=== PATIENT | female | born 1970 | race Two or more races ===

== ENCOUNTER 2023-11-28 23:24 | Emergency (ER) | payer MEDICAID ==
[~2023-11-28] VITALS: Ht 152.4 cm; Wt 64.7 kg
[2023-11-29 04:53] VITALS: BP 111/74; PULSE 80; RESP 18; TEMP 97.8; O2SAT 100
== END 2023-11-29 04:55 | disposition home or self-care (01) ==
LOC: ER 23:24
DX: M79.662 Pain in left lower leg (principal); M79.661 Pain in right lower leg; I82.403 Acute embolism and thrombosis of unspecified deep veins of lower extremity, bilateral
CPT/HCPCS: 93970

== ENCOUNTER 2023-12-06 10:11 | Emergency (ER) | payer MEDICAID ==
[~2023-12-06] VITALS: Ht 152.4 cm; Wt 63.6 kg
[2023-12-06 10:26] VITALS: TEMP 98
[2023-12-06 10:38] LABS: Basophils # (auto) 0 10 ^3/uL (0-0.2); Basophils % (auto) 0.5 % (0.0-2.0); Eosinophils # (auto) 0.2 10 ^3/uL (0-0.8); Hematocrit 40.7 % (36.0-46.0); Hemoglobin 13.9 g/dL (12.2-16.2); Lymphocytes # (auto) 2.2 10 ^3/uL (0.4-5.4); Lymphocytes % (auto) 37.7 % (10.0-50.0); Mean Corpuscular Hemoglobin 29.5 pg (28.0-32.0); Mean Corpuscular Hgb Conc. 34.1 g/dL (32.0-36.0); Mean Corpuscular Volume 86.5 fL (80.0-100.0); Monocytes # (auto) 0.4 10 ^3/uL (0-1.3); Monocytes % (auto) 7.2 % (0.0-12.0); Neutrophils % (auto) 51.6 % (37.0-80.0); Nucleated Red Blood Cells % 0.2 %; Red Cell Distribution Width 13.1 % (11.8-14.3); White Blood Cell 5.8 10^3/uL (4.4-10.8)
[2023-12-06] MEDS: ONDANSETRON HCL 4 MG/2 ML VIAL IV ONE (10:47)
[2023-12-06] MEDS: MORPHINE SULFATE INJ 2 MG/ml SYRG IV ONE (10:50)
[2023-12-06 10:58] LABS: Alanine Aminotransferase 27 U/L (7-40); Albumin 4.8 g/dL (3.2-4.8); Alkaline Phosphatase 151 U/L (46-116); Anion Gap 7 (5-15); Aspartate Aminotransferase 16 U/L (13-40); BUN/Creatinine Ratio 14.9 (10.0-20.0); Bilirubin, Total 0.5 mg/dL (0.2-1.0); Blood Urea Nitrogen 10 mg/dL (9-23); Calcium 10.1 mg/dL (8.7-10.4); Carbon Dioxide 27 mmol/L (20-30); Chloride 105 mmol/L (98-107); Glucose 177 mg/dL (74-106); Potassium 3.9 mmol/L (3.5-5.1); Sodium 139 mmol/L (136-145); Total Protein 7.7 g/dL (5.7-8.2)
[2023-12-06] MEDS: ASPirin 81 mg TAB PO ONE (12:08)
[2023-12-06] MEDS: SODIUM CHLORIDE 0.9% 1,000 ML IV ONE (12:09)
[2023-12-06 12:13] LABS: Urine Bacteria None Seen /hpf (None Seen)
[2023-12-06 12:37] LABS: Urine Blood Negative /uL (Negative); Urine Clarity Clear (Clear); Urine Color Light-Yellow (Yellow); Urine Mucus FEW (None Seen); Urine Protein, UAD TRACE (Negative); Urine Specific Gravity 1.024 (1.001-1.035); Urine Urobilinogen Normal (Negative); Urine WBC 1 /hpf (0 - 5)
[2023-12-06 13:18] VITALS: PULSE 86; RESP 18; O2SAT 99
[2023-12-06 15:15] VITALS: BP 122/61; PULSE 88; RESP 16; O2SAT 99
[2023-12-06] MEDS ORDERED: CYCL-839 PO (15:20)
[2023-12-06] MEDS ORDERED: DICL50TA2 PO (15:20)
== END 2023-12-06 15:43 | disposition home or self-care (01) ==
LOC: ER 10:11
DX: R07.89 Other chest pain (principal); E11.65 Type 2 diabetes mellitus with hyperglycemia; E03.9 Hypothyroidism, unspecified; Z79.899 Other long term (current) drug therapy; Z90.49 Acquired absence of other specified parts of digestive tract
CPT/HCPCS: 36415; 71045; 80053; 81001; 82962; 83735; 84443; 84484; 85025; 93005; 96361; 96374; 96375; 99285; J2270; J2405

== ENCOUNTER 2024-03-07 09:13 | Inpatient (IN) | payer MEDICAID ==
[~2024-03-07] VITALS: Ht 152.4 cm; Wt 65.0 kg
[~2024-03-07 09:13] MED LIST: CYCL-839 PO; DICL50TA2 PO
--- NOTE | 2024-03-07 09:31 | ED.PDOC ---
HPI Comments 53F who is ivorian speaking, presents to the ER w/ prior Hx of DM and HTN which may be associated to the c/c of CP. Pt reports on her mother passing away 8 days ago and has been stressed from that, and started to have CP last night which radiated to the left arm to the upper back. Pt notes that the CP feels like tightness and is constant. Pain type of a 9. PMHx of thyroid. SHx of cholecystectomy. Denies chills, fever, N/V/D, SOB or other associated Symptom's, Modifiers, or recent injuries or sick contact at this time. Chief Complaint: Chest Pain Time Seen by MD: 09:20 Reviewed Notes: Nurses Notes, Medications, Allergies Allergies: Coded Allergies: NO KNOWN ALLERGIES (Unverified , 11/17/22) Home Meds Active Scripts Cyclobenzaprine Hcl (Cyclobenzaprine Hcl) 10 Mg Tab, 10 MG PO TID for 10 Days, #30 TAB Prov:SHANNON DYKES MD 12/06/23 Diclofenac Potassium (Diclofenac Potassium) 50 Mg Tab, 50 MG PO TID for 10 Days, #30 TAB Prov:SHANNON DYKES MD 12/06/23 Information Source: Patient Mode of Arrival: Ambulatory Severity: Moderate Timing: Hours Duration: Since onset, Hours Prehospital treatment: None Location: Chest (L) Radiation: Back (upper), Arm (L) Quality: Tightness Onset: At Rest Cardiac Risk Factors: HTN, Diabetes History of: None Past Medical History PAST MEDICAL HISTORY: DM, HTN, Thyroid Surgical History: Cholecystectomy 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 Family History Family History: Reviewed,noncontributory to illness, Unknown Social History Smoker: Non-Smoker Alcohol: Denies ETOH Use Drugs: Denies Drug Use Lives In: Home Constitutional: denies: chills, diaphoresis, fatigue, fever, malaise, sweats, weakness, others EENTM: denies: blurred vision, double vision, ear bleeding, ear discharge, ear drainage, ear pain, ear ringing, eye pain, eye redness, hearing loss, mouth pain, mouth swelling, nasal discharge, nose bleeding, nose congestion, nose pain, photophobia, tearing, throat pain, throat swelling, voice changes, others Respiratory: denies: cough, hemoptysis, orthopnea, SOB at rest, shortness of breath, SOB with excertion, stridor, wheezing, others Cardiovascular: reports: chest pain, left arm pain; denies: dizzy spells, diaphoresis, Dyspnea on exertion, edema, irregular heart beat, lightheadedness, palpitations, PND, syncope, others Gastrointestinal: denies: abdomen distended, abdominal pain, blood streaked bowels, constipated, diarrhea, dysphagia, difficulty swallowing, hematemesis, melena, nausea, poor appetite, poor fluid intake, rectal bleeding, rectal pain, vomiting, others Genitourinary: denies: abnormal vagina bleeding, burning, dyspareunia, dysuria, flank pain, frequency, hematuria, incontinence, pain, , vagina discharge, urgency, others Neurological: denies: dizziness, fainting, headache, left sided numbness, left sided weakness, numbness, paresthesia, pre-existing deficit, right sided numb ness, right sided weakness, seizure, speech problems, tingling, tremors, weakness, others Musculoskeletal: denies: back pain, gout, joint pain, joint swelling, muscle pain, muscle stiffness, neck pain, others Integumetry: denies: bruises, change in color, change in hair/nails, dryness, laceration, lesions, lumps, rash, wounds, others Allergic/Immunocompromised: denies: Difficulty Healing, Frequent Infections, Hives, Itching, others Hematologic/Lymphatic: denies: anemia, blood clots, easy bleeding, easy bruising, swollen glands, others Endocrine: denies: excessive hunger, excessive sweating, excessive thirst, excessive urination, flushing, intolerance to cold, intolerance to heat, unexplained weight gain, unexplained weight loss, others Psychiatric: denies: anxiety, bipolar disorder, depression, hopeless, panic disorder, schizophrenia, sleepless, suicidal, others All Other Systems: Reviewed and Negative Physical Exam General Appearance: Moderate Distress, Normal HEENT: Normal ENT Inspection, Pharynx Normal, TMs Normal Neck: Full Range of Motion, Non-Tender, Normal, Normal Inspection Respiratory: Chest Non-Tender, Lungs Clear, No Accessory Muscle Use, No Respiratory Distress, Normal Breath Sounds Cardiovascular: No Edema, No JVD, No Murmur, No Gallop, Normal Peripheral Pulses, Regular Rate/Rhythm Breast Exam: Deferred Gastrointestinal: No Organomegaly, Non Tender, No Pulsatile Mass, Normal Bowel Sounds, Soft Genitalia: Deferred Pelvic: Deferred Rectal: Deferred Extremities: No calf tenderness, Normal capillary refill, Normal inspection, Normal range of motion, Non-tender, No pedal edema Musculoskeletal : Apperance: Normal Neurologic: Alert, movie editor II-XII nml as Tested, No Motor Deficits, Normal Affect, Normal Mood, No Sensory Deficits Cerebellar Function: NOT DONE Reflexes: NOT DONE Skin: Dry, Normal Color, Warm Peripheral Pulses: 3+ Radial (R), 3+ Radial (L) Lymphatic: No Adenopathy Was a procedure done? Was a procedure done?: No CP Differential Dx Differential Diagnosis: A-fib, A-Flutter, Angina, Anxiety / Panic Attack, Atrial Dysrhythmia, Electrolyte Disorder X-Ray, Labs, Meds, VS Vital Signs Date Time Temp Pulse Resp B/P (MAP) Pulse Ox O2 Delivery O2 Flow Rate FiO2 03/07/24 15:36 109 16 116/62 (80) 98 03/07/24 15:35 109 16 116/62 03/07/24 14:36 106 16 125/71 03/07/24 14:33 106 16 125/71 (89) 98 03/07/24 11:27 98 16 107/77 (87) 99 03/07/24 10:25 90 03/07/24 10:21 98 16 98 Room Air* 0 21 03/07/24 09:19 104 03/07/24 09:13 98.0 97 17 132/76 (94) 100 Lab Test 03/07/24 15:51 03/07/24 10:33 03/07/24 09:42 03/07/24 09:37 Range/Units POC Glucose 235 H 70-106 mg/dl Troponin I High Sensitivity < 3 L < 3 L </=34 ng/L Urine Color Light-yellow Yellow Urine Clarity Clear Clear Urine pH 5.5 5.0-9.0 Urine Specific [place] 1.017 1.001-1.035 Urine Protein Negative Negative Urine Ketones Negative Negative Urine Blood Negative Negative /uL Urine Nitrite Negative Negative Urine Bilirubin Negative Negative Urine Urobilinogen Normal Negative mg/dL Urine Leukocyte Esterase Negative Negative /uL Urine RBC <1 0 - 4 /hpf Urine WBC <1 0 - 5 /hpf Urine Squamous Epithelial Cells Few <5 /hpf Urine Bacteria None seen None Seen /hpf Urine Mucus Few None Seen Urine Glucose Normal Normal mg/dL White Blood Count 5.7 4.4-10.8 10^3/uL Red Blood Count 4.76 4.0-5.20 10^6/uL Hemoglobin 14.3 12.2-16.2 g/dL Hematocrit 41.7 36.0-46.0 % Mean Corpuscular Volume 87.6 80.0-100.0 fL Mean Corpuscular Hemoglobin 29.9 28.0-32.0 pg Mean Corpuscular Hemoglobin Concent 34.2 32.0-36.0 g/dL Red Cell Distribution Width 13.3 11.8-14.3 % Platelet Count 290 140-450 10^3/uL Mean Platelet Volume 6.5 L 6.9-10.8 fL Neutrophils (%) (Auto) 59.1 37.0-80.0 % Lymphocytes (%) (Auto) 30.2 10.0-50.0 % Monocytes (%) (Auto) 7.8 0.0-12.0 % Eosinophils (%) (Auto) 2.2 0.0-7.0 % Basophils (%) (Auto) 0.7 0.0-2.0 % Neutrophils # (Auto) 3.4 1.6-8.6 10 ^3/uL Lymphocytes # (Auto) 1.7 0.4-5.4 10 ^3/uL Monocytes # (Auto) 0.4 0-1.3 10 ^3/uL Eosinophils # (Auto) 0.1 0-0.8 10 ^3/uL Basophils # (Auto) 0 0-0.2 10 ^3/uL Nucleated Red Blood Cells 0.1 % Sodium Level 140 136-145 mmol/L Potassium Level 4.3 3.5-5.1 mmol/L Chloride Level 105 98-107 mmol/L Carbon Dioxide Level 32 H 20-31 mmol/L Anion Gap 3 L 5-15 Blood Urea Nitrogen 12 9-23 mg/dL Creatinine 0.75 0.550-1.02 mg/dL Glomerular Filtration Rate Calc 95 >90 mL/min BUN/Creatinine Ratio 16.0 10.0-20.0 Serum Glucose 179 H 74-106 mg/dL Calcium Level 10.0 8.7-10.4 mg/dL Magnesium Level 1.8 1.6-2.6 mg/dL Total Bilirubin 0.4 0.2-1.0 mg/dL Aspartate Amino Transferase (AST) 15 13-40 U/L Alanine Aminotransferase (ALT) 22 7-40 U/L Alkaline Phosphatase 159 H 46-116 U/L Total Protein 7.8 5.7-8.2 g/dL Albumin 4.8 3.2-4.8 g/dL Current Medications Medications (Trade) Dose Ordered Sig/Anselmo Route Start Time Stop Time Status Last Admin Aspirin 325 mg ONCE ONCE PO 03/07/24 14:30 03/07/24 14:31 DC 03/07/24 14:36 Morphine Sulfate 4 mg ONCE ONCE IV 03/07/24 14:30 03/07/24 14:31 DC 03/07/24 14:36 Ondansetron HCl (Zofran) 4 mg ONCE ONCE IV 03/07/24 14:30 03/07/24 14:31 DC 03/07/24 14:36 Sodium Chloride 1,000 ml @ 1,000 mls/hr Q1H ONCE IV 03/07/24 16:00 03/07/24 16:59 DC 03/07/24 16:09 Sodium Chloride 1,000 ml @ 150 mls/hr Q6H40M ONCE IV 03/07/24 16:00 03/07/24 22:39 03/07/24 16:23 Patient alert. Complaining of chest pain. Vitals stable. Answering all questions. Blood sugar elevated. Was given aspirin. Was given nitro. EKG reviewed does not show any acute changes. Explained to the patient. Time of 1ST Reevaluation: 09:50 Reevaluation 1ST: Unchanged Patient Education/Counseling: Diagnosis, Treatment, Prognosis Family Education/Counseling: No Family Present Departure 1 Departure Time of Disposition: 11:29 Impression: Primary Impression: Chest pain of unknown etiology Additional Impressions: Uncontrolled diabetes mellitus Qualified Codes: E13.65 - Other specified diabetes mellitus with hyperglycemia Syncope Qualified Codes: R55 - Syncope and collapse Disposition: 09 ADMITTED INPATIENT Admit to: Med Surg Condition: Guarded Critical Care Note Critical Care Time?: Yes (45 min-critical care time only) Stability Stability form required: No Heart Score Heart Score: Heart Score Response (Comments) Value History Slightly Suspicious 0 EKG Normal 0 Age 45-64 1 Risk Factors >3 or Hx ASHD 2 Troponin Normal limit 0 Total 3 I personally scribed for NABIL BROWN MD ([email or web address]) on 03/07/24 at 09:31. Electronically submitted by Rome Nino ([email or web address]). NABIL BROWN MD Mar 07, 2024 09:31
[2024-03-07 09:46] LABS: Basophils # (auto) 0 10 ^3/uL (0-0.2); Basophils % (auto) 0.7 % (0.0-2.0); Eosinophils # (auto) 0.1 10 ^3/uL (0-0.8); Eosinophils % (auto) 2.2 % (0.0-7.0); Hematocrit 41.7 % (36.0-46.0); Hemoglobin 14.3 g/dL (12.2-16.2); Lymphocytes # (auto) 1.7 10 ^3/uL (0.4-5.4); Lymphocytes % (auto) 30.2 % (10.0-50.0); Mean Corpuscular Hemoglobin 29.9 pg (28.0-32.0); Mean Corpuscular Hgb Conc. 34.2 g/dL (32.0-36.0); Mean Corpuscular Volume 87.6 fL (80.0-100.0); Monocytes # (auto) 0.4 10 ^3/uL (0-1.3); Monocytes % (auto) 7.8 % (0.0-12.0); Neutrophils # (auto) 3.4 10 ^3/uL (1.6-8.6); Neutrophils % (auto) 59.1 % (37.0-80.0); Nucleated Red Blood Cells % 0.1 %; Platelet Count (auto) 290 10^3/uL (140-450); Red Blood Cells 4.76 10^6/uL (4.0-5.20); Red Cell Distribution Width 13.3 % (11.8-14.3); White Blood Cell 5.7 10^3/uL (4.4-10.8)
--- NOTE | 2024-03-07 09:58 | DVH ---
Procedure: XY CHEST PORTABLE 03/07/2024 09:28 AM Indication: CP. Comparison: XY CHEST PORTABLE on DOS: 12/06/23, XY CHEST PORTABLE on DOS: 11/17/22 TECHNIQUE: XY CHEST PORTABLE FINDINGS: Medical devices: None. Cardiomediastinal: The heart is normal in size. Pulmonary vasculature is within normal limits. Lungs: No focal pulmonary opacity is seen. The costophrenic angles are clear. No pneumothorax. Bones/soft tissues: No acute abnormality is noted. IMPRESSION: 1. No acute cardiopulmonary disease.
[2024-03-07 10:00] LABS: Urine Bacteria None Seen /hpf (None Seen)
[2024-03-07 10:05] LABS: Alanine Aminotransferase 22 U/L (7-40); Albumin 4.8 g/dL (3.2-4.8); Alkaline Phosphatase 159 U/L (46-116); Anion Gap 3 (5-15); Aspartate Aminotransferase 15 U/L (13-40); Bilirubin, Total 0.4 mg/dL (0.2-1.0); Blood Urea Nitrogen 12 mg/dL (9-23); Carbon Dioxide 32 mmol/L (20-31); Chloride 105 mmol/L (98-107); Glucose 179 mg/dL (74-106); Magnesium 1.8 mg/dL (1.6-2.6); Potassium 4.3 mmol/L (3.5-5.1); Sodium 140 mmol/L (136-145); Total Protein 7.8 g/dL (5.7-8.2)
[2024-03-07 10:17] LABS: Urine Blood Negative /uL (Negative); Urine Clarity Clear (Clear); Urine Color Light-Yellow (Yellow); Urine Mucus FEW (None Seen); Urine Protein, UAD Negative (Negative); Urine Specific Gravity 1.017 (1.001-1.035); Urine Urobilinogen Normal (Negative); Urine WBC <1 /hpf (0 - 5); Urine pH 5.5 (5.0-9.0)
[2024-03-07 10:21] VITALS: PULSE 98; RESP 16; O2SAT 98
[2024-03-07] MEDS: NITROGLYCERIN 0.4 MG SL TAB SL ONE (14:35)
[2024-03-07] MEDS: ONDANSETRON HCL 4 MG/2 ML VIAL IV ONE (14:36)
[2024-03-07] MEDS: MORPHINE SULFATE 4 MG/ML SYR/VIAL IV ONE (14:36)
[2024-03-07] MEDS: ASPirin 325 MG TAB PO ONE (14:36)
[2024-03-07] MEDS: SODIUM CHLORIDE 0.9% 1,000 ML IV ONE ×2 (16:09→16:23)
[2024-03-07] MEDS ORDERED: ACETAMINOPHEN 325 MG TAB PO PRN (16:15)
[2024-03-07] MEDS ORDERED: MORPHINE SULFATE INJ 2 MG/ml SYRG IV PRN ×2 (16:15)
[2024-03-07] MEDS ORDERED: ONDANSETRON HCL 4 MG/2 ML VIAL IV PRN (16:15)
[2024-03-07] MEDS ORDERED: NITROGLYCERIN 0.4 MG SL TAB SL PRN (16:15)
[2024-03-07] MEDS: LORazepam 2MG/ML-1ML VIAL IV ONE (16:24)
--- NOTE | 2024-03-07 16:28 | DVHHP2 ---
History of Present Illness Reason for Visit: Chest pain History of Present Illness 52-year-old female with a known history of diabetes mellitus type 2 insulin- dependent, hypertension who initially resolved with the chest pain patient was at [facility] radiated left arm and upper back. Patient stated that she stressed out as her mom possibly a few days ago. In the ER patient was worked up troponins are negative. Patient currently denies any chest pain denies previous episode of similar kind. Patient denies any premature history of coronary artery disease in family. Cardiovascular: HTN Endocrine: Diabetes Past Surgical History: Cholecystectomy Smoke: No ALCOHOL: none Review of Systems Review of Systems 12 review of system are negative besides mentioned above. Allergies: Coded Allergies: NO KNOWN ALLERGIES (Unverified , 11/17/22) Medications Current Medications Medications Dose Ordered Sig/Anselmo Route Start Time Stop Time Status Last Admin Dose Admin Acetaminophen/ Hydrocodone Bitart 1 tab Q4HP PRN PO 03/07/24 16:15 UNV Ondansetron HCl 4 mg Q4HP PRN IV 03/07/24 16:15 UNV Enoxaparin Sodium 40 mg DAILY SC 03/08/24 10:00 UNV Acetaminophen 650 mg Q6HP PRN PO 03/07/24 16:15 UNV Morphine Sulfate 2 mg Q4HPRN PRN IV 03/07/24 16:15 UNV Nitroglycerin 0.4 mg Q5MINP PRN SL 03/07/24 16:15 UNV Morphine Sulfate 2 mg Q30M PRN IV 03/07/24 16:15 UNV Exam Vital Signs Vital Signs Date Time Temp Pulse Resp B/P (MAP) Pulse Ox O2 Delivery O2 Flow Rate FiO2 03/07/24 15:36 109 16 116/62 (80) 98 03/07/24 10:21 Room Air* 0 21 03/07/24 09:13 98.0 Exam HEENT pupils are reactive Neck is supple CV system S2 regular rate and rhythm Chest diminished breath sound abuse GI positive bowel sound Extremity no edema 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 Labs/Xrays Labs Test 03/07/24 15:51 03/07/24 10:33 03/07/24 09:42 03/07/24 09:37 Range/Units POC Glucose 235 H 70-106 mg/dl Troponin I High Sensitivity < 3 L </=34 ng/L Urine Color Light-yellow Yellow Urine Clarity Clear Clear Urine pH 5.5 5.0-9.0 Urine Specific [place] 1.017 1.001-1.035 Urine Protein Negative Negative Urine Ketones Negative Negative Urine Blood Negative Negative /uL Urine Nitrite Negative Negative Urine Bilirubin Negative Negative Urine Urobilinogen Normal Negative mg/dL Urine Leukocyte Esterase Negative Negative /uL Urine RBC <1 0 - 4 /hpf Urine WBC <1 0 - 5 /hpf Urine Squamous Epithelial Cells Few <5 /hpf Urine Bacteria None seen None Seen /hpf Urine Mucus Few None Seen Urine Glucose Normal Normal mg/dL White Blood Count 5.7 4.4-10.8 10^3/uL Red Blood Count 4.76 4.0-5.20 10^6/uL Hemoglobin 14.3 12.2-16.2 g/dL Hematocrit 41.7 36.0-46.0 % Mean Corpuscular Volume 87.6 80.0-100.0 fL Mean Corpuscular Hemoglobin 29.9 28.0-32.0 pg Mean Corpuscular Hemoglobin Concent 34.2 32.0-36.0 g/dL Red Cell Distribution Width 13.3 11.8-14.3 % Platelet Count 290 140-450 10^3/uL Mean Platelet Volume 6.5 L 6.9-10.8 fL Neutrophils (%) (Auto) 59.1 37.0-80.0 % Lymphocytes (%) (Auto) 30.2 10.0-50.0 % Monocytes (%) (Auto) 7.8 0.0-12.0 % Eosinophils (%) (Auto) 2.2 0.0-7.0 % Basophils (%) (Auto) 0.7 0.0-2.0 % Neutrophils # (Auto) 3.4 1.6-8.6 10 ^3/uL Lymphocytes # (Auto) 1.7 0.4-5.4 10 ^3/uL Monocytes # (Auto) 0.4 0-1.3 10 ^3/uL Eosinophils # (Auto) 0.1 0-0.8 10 ^3/uL Basophils # (Auto) 0 0-0.2 10 ^3/uL Nucleated Red Blood Cells 0.1 % Sodium Level 140 136-145 mmol/L Potassium Level 4.3 3.5-5.1 mmol/L Chloride Level 105 98-107 mmol/L Carbon Dioxide Level 32 H 20-31 mmol/L Anion Gap 3 L 5-15 Blood Urea Nitrogen 12 9-23 mg/dL Creatinine 0.75 0.550-1.02 mg/dL Glomerular Filtration Rate Calc 95 >90 mL/min BUN/Creatinine Ratio 16.0 10.0-20.0 Serum Glucose 179 H 74-106 mg/dL Calcium Level 10.0 8.7-10.4 mg/dL Magnesium Level 1.8 1.6-2.6 mg/dL Total Bilirubin 0.4 0.2-1.0 mg/dL Aspartate Amino Transferase (AST) 15 13-40 U/L Alanine Aminotransferase (ALT) 22 7-40 U/L Alkaline Phosphatase 159 H 46-116 U/L Total Protein 7.8 5.7-8.2 g/dL Albumin 4.8 3.2-4.8 g/dL Assessment/Plan Assessment/Plan 52-year-old female with known history of diabetes mellitus type 2 insulin- dependent, hypertension initiated into the hospital with chest pain found to have 1. Chest pain rule out [facility] 2. Hyperglycemia in the setting of diabetes mellitus type 2 3. Hypertension -admit to telemetry, 2D echo cardiology consultation -Accu-Cheks q.a.c. and HS low-dose sliding scale. 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 Plan discussed with: Patient My Orders Orders - DEMARIO LEY MD Procedure Category Date Status Time Admit ADMIT 03/07/24 Transmitted 16:15 2 Gm Sodium Diet DIET 03/07/24 Transmitted Dinner Hydrocodone-Acet PHA 03/07/24 Logged 5/325mg Tab ([place] 16:15 Ondansetron Hcl PHA 03/07/24 Logged (Zofran) 16:15 Enoxaparin Sodium PHA 03/08/24 Logged (Lovenox) 10:00 Echo 2d Mode Cardiac US 03/07/24 Logged DOP 16:15 Condition: Fair MIRIAM 03/07/24 In Process 16:15 Acetaminophen Tablet PHA 03/07/24 Logged (Tylenol Tablet) 16:15 Morphine Sulfate PHA 03/07/24 Logged Injection 16:15 Nitroglycerin PHA 03/07/24 Logged Sublingual (Ntrostat 16:15 Morphine Sulfate PHA 03/07/24 Logged Injection 16:15 Stat Ekg For Chest MIRIAM 03/07/24 In Process Pain 16:15 Notify Md Of Changes [facility] 03/07/24 In Process From Base 16:15 Printing Bindery Assistant For [facility] 03/07/24 In Process 24 Hours 16:15 Emergency Dysrhythmia [facility] 03/07/24 In Process Protocol 16:15 Rhythm Strips Once [facility] 03/07/24 In Process Every Shift 16:15 Oxygen By Nasal RT 03/07/24 Transmitted Cannula 16:15 * Cardiology Consult CONS 03/07/24 Transmitted 16:15 Date of Service: Mar 07, 2024 Billing Provider: DEMARIO LEY MD Common Visit Codes: NOT BILLABLE DEMARIO LEY MD Mar 07, 2024 16:28
[2024-03-07] MEDS ORDERED: DEXTROSE (50%) 50ML SYRG IV PRN (16:30)
--- NOTE | 2024-03-07 17:22 | DVH ---
EXAM: CT HEAD WITHOUT CONTRAST INDICATION: syncope TECHNIQUE: CT of the head without intravenous contrast. Radiation Dose Information: CT Dose: CTDI volume is 50.73 mGy. Dose-length product is 813.37 mGy*cm The dose indicators for CT are the volume Computed Tomography (CT) Dose Index (CTDIvol) and the Dose Length Product (DLP), and are measured in units of mGy and mGy-cm, respectively. These indicators are not patient dose, but values generated from the CT scanner acquisition factors. The report includes radiation exposure data for exposures received during this examination. COMPARISON: None FINDINGS: There is no evidence of acute intracranial hemorrhage, extra-axial collection, mass effect, midline s hift, herniation or hydrocephalus. The ventricles, sulci and cisterns are age appropriate. The velez-white differentiation is intact. Nonspecific punctate parenchymal calcification in the right frontal lobe, may be sequelae of neurocys ticercosis. The visualized paranasal sinuses and mastoid air cells are clear. The surrounding soft tissues and osseous structures are unremarkable. IMPRESSION: 1. No acute intracranial abnormality.
[2024-03-07] MEDS: InsuLIN REG 1unit/0.01ml Soln (100units/ml) SC SCH ×2 (17:25→22:19)
[2024-03-07] MEDS: ACCU-CHEK COMFORT CURVE STRIP VI SCH (17:27)
[2024-03-07 20:43] VITALS: PULSE 93; RESP 19; O2SAT 96
[2024-03-08 02:33] VITALS: BP 129/71; PULSE 87; RESP 18; TEMP 98.3; O2SAT 97
[2024-03-08 05:00] VITALS: BP 128/72; PULSE 65; RESP 16; O2SAT 100
[2024-03-08] MEDS ORDERED: LISI10TA34 PO (05:36)
[2024-03-08] MEDS ORDERED: GLIP10TA9 PO (05:36)
[2024-03-08] MEDS ORDERED: METH5TAB98 PO (05:36)
[2024-03-08] MEDS ORDERED: INSUINJ37 SC (05:36)
[2024-03-08 08:10] VITALS: PULSE 99
[2024-03-08 08:34] LABS: Hepatitis B Surface Antigen Negative (Negative)
[2024-03-08 08:56] LABS: Hepatitis C Antibody Negative (Negative)
[2024-03-08 09:05] VITALS: BP 113/69; PULSE 102; RESP 18; TEMP 98.3; O2SAT 94
[2024-03-08] MEDS: ENOXAPARIN SOD 40 MG/0.4 ML SYRINGE SC SCH (10:48)
[2024-03-08] MEDS: HYDROcodone-ACET 5/325MG TAB PO PRN (10:53)
[2024-03-08 13:00] VITALS: BP 125/70; PULSE 98; RESP 16; TEMP 97.7; O2SAT 95
--- NOTE | 2024-03-08 14:39 | ECG ---
[facility] Test Date: 2024-03-07 Test Time: 10:25:17 Pat Name: LAMONT BEST Department: ER Room: 0287T A Gender: F Planning Assistant: BREA : 1970 Requested By: NABIL BROWN Order Number: [id number] Reading MD: Timur Burrows Measurements Intervals [place] Rate: 90 P: 52 [place]: 144 QRS: 49 QRSD: 69 T: 57 QT: 338 QTc: 414 Interpretive Statements Sinus rhythm Electronically Signed On 03-18-2024 12:42:50 PST by Timur Burrows Please click the below link to view image of tracing.
--- NOTE | 2024-03-08 14:39 | ECG ---
[facility] Test Date: 2024-03-07 Test Time: 09:19:38 Pat Name: LAMONT BEST Department: ER Room: 0287T A Gender: F Hand Binder Cutter: GEOVANI : 1970 Requested By: NABIL BROWN Order Number: [id number] Reading MD: Timur Burrows Measurements Intervals [place] Rate: 104 P: 75 [place]: 132 QRS: 76 QRSD: 80 T: 60 QT: 338 QTc: 445 Interpretive Statements Sinus tachycardia Electronically Signed On 03-18-2024 12:41:36 PST by Timur Burrows Please click the below link to view image of tracing.
--- NOTE | 2024-03-08 16:33 | DVHDS2 ---
Discharge Summary Date of Admission Mar 07, 2024 at 16:15 Date of Discharge: Mar 08, 2024 Labs/Diagnostic Data: Laboratory Results Test 03/08/24 11:45 03/08/24 06:03 03/07/24 10:33 03/07/24 09:42 POC Glucose 196 mg/dl (70-106) Hepatitis B Surface Antigen Negative (Negative) Hepatitis C Antibody Negative (Negative) Troponin I High Sensitivity < 3 ng/L (</=34) Urine Color Light-yellow (Yellow) Urine Clarity Clear (Clear) Urine pH 5.5 (5.0-9.0) Urine Specific [place] 1.017 (1.001-1.035) Urine Protein Negative (Negative) Urine Ketones Negative (Negative) Urine Blood Negative /uL (Negative) Urine Nitrite Negative (Negative) Urine Bilirubin Negative (Negative) Urine Urobilinogen Normal mg/dL (Negative) Urine Leukocyte Esterase Negative /uL (Negative) Urine RBC <1 /hpf (0 - 4) Urine WBC <1 /hpf (0 - 5) Urine Squamous Epithelial Cells Few /hpf (<5) Urine Bacteria None seen /hpf (None Seen) Urine Mucus Few (None Seen) Urine Glucose Normal mg/dL (Normal) Test 03/07/24 09:37 White Blood Count 5.7 10^3/uL (4.4-10.8) Red Blood Count 4.76 10^6/uL (4.0-5.20) Hemoglobin 14.3 g/dL (12.2-16.2) Hematocrit 41.7 % (36.0-46.0) Mean Corpuscular Volume 87.6 fL (80.0-100.0) Mean Corpuscular Hemoglobin 29.9 pg (28.0-32.0) Mean Corpuscular Hemoglobin Concent 34.2 g/dL (32.0-36.0) Red Cell Distribution Width 13.3 % (11.8-14.3) Platelet Count 290 10^3/uL (140-450) Mean Platelet Volume 6.5 fL (6.9-10.8) Neutrophils (%) (Auto) 59.1 % (37.0-80.0) Lymphocytes (%) (Auto) 30.2 % (10.0-50.0) Monocytes (%) (Auto) 7.8 % (0.0-12.0) Eosinophils (%) (Auto) 2.2 % (0.0-7.0) Basophils (%) (Auto) 0.7 % (0.0-2.0) Neutrophils # (Auto) 3.4 10 ^3/uL (1.6-8.6) Lymphocytes # (Auto) 1.7 10 ^3/uL (0.4-5.4) Monocytes # (Auto) 0.4 10 ^3/uL (0-1.3) Eosinophils # (Auto) 0.1 10 ^3/uL (0-0.8) Basophils # (Auto) 0 10 ^3/uL (0-0.2) Nucleated Red Blood Cells 0.1 % Sodium Level 140 mmol/L (136-145) Potassium Level 4.3 mmol/L (3.5-5.1) Chloride Level 105 mmol/L (98-107) Carbon Dioxide Level 32 mmol/L (20-31) Anion Gap 3 (5-15) Blood Urea Nitrogen 12 mg/dL (9-23) Creatinine 0.75 mg/dL (0.550-1.02) Glomerular Filtration Rate Calc 95 mL/min (>90) BUN/Creatinine Ratio 16.0 (10.0-20.0) Serum Glucose 179 mg/dL (74-106) Calcium Level 10.0 mg/dL (8.7-10.4) Magnesium Level 1.8 mg/dL (1.6-2.6) Total Bilirubin 0.4 mg/dL (0.2-1.0) Aspartate Amino Transferase (AST) 15 U/L (13-40) Alanine Aminotransferase (ALT) 22 U/L (7-40) Alkaline Phosphatase 159 U/L (46-116) Total Protein 7.8 g/dL (5.7-8.2) Albumin 4.8 g/dL (3.2-4.8) Other Laboratory Tests 03/07/24 09:37 Brief Hx & Hospital Course: 52-year-old female with known history of diabetes mellitus type 2 insulin- dependent, hypertension initiated into the hospital with chest pain eventually admitted felt blood MD. Patient had hyperglycemia in the setting of diabetes mellitus patient's troponins are normal patient is being discharged under stable condition with close follow up as an outpatient with PCP and return to ER if chest pain returns. Condition at Discharge: Stable Final Diagnosis/Problems List Chest pain MD ruled out Discharge Disposition: Home SNF Discharge Will this Physician continue t: No Discharge Instruct/Medications Diet: Cardiac 2g Na,low cholest Activity: No Restrictions, As Tolerated Follow Up/Referral: Follow up with PCP in 1-2 weeks Medications: Resume home medications Discharge Statement: "Patient was advised to return to the ER or call 911 if any headaches, dizziness, shortness of breath, chest pain, abdominal pain, bleeding, fevers, or worsening of medical condition. Patient was counseled about treatment plan, medications, possible side effects, patientverbalized understanding. All questions were answered to the best of my ability. This discharge took greater then 30 minutes in planning, reviewing documentation, counseling the patient, and discussing with other team members." ASSESSMENT ASSESSMENT Assessment Chest pain MD ruled out Date of Service: Mar 08, 2024 Billing Provider: DEMARIO LEY MD Common Visit Codes: NOT BILLABLE DEMARIO LEY MD Mar 08, 2024 16:33
[2024-03-08 17:07] VITALS: BP 105/69; PULSE 92; RESP 16; TEMP 97.7; O2SAT 96
== END 2024-03-08 18:57 | disposition home or self-care (01) | DRG 203 ==
LOC: ER 09:13 → TELE 16:15 → TELE-WESTW 03-08 02:24
PROVIDERS: ADMIT Internal Medicine; ATTEND Internal Medicine
DX: M94.0 Chondrocostal junction syndrome [Tietze] (principal); E11.65 Type 2 diabetes mellitus with hyperglycemia; I10 Essential (primary) hypertension; Z79.4 Long term (current) use of insulin; Z79.899 Other long term (current) drug therapy; Z90.49 Acquired absence of other specified parts of digestive tract
CPT/HCPCS: 36415; 70450; 71045; 80053; 81001; 82962; 83735; 84484; 85025; 86803; 87340; 93005; 93306; 96374; 96375; 99291; G0378; J1815; J2405

== ENCOUNTER 2024-03-08 20:56 | Emergency (ER) | payer MEDICAID ==
[~2024-03-08] VITALS: Ht 152.4 cm; Wt 62.2 kg
[~2024-03-08 20:56] MED LIST changes: +GLIP10TA9 PO; +INSUINJ37 SC; +LISI10TA34 PO; +METH5TAB98 PO
--- NOTE | 2024-03-08 21:06 | ECG ---
[facility] Test Date: 2024-03-08 Test Time: 21:05:19 Pat Name: LAMONT BEST Department: ER Room: Gender: F Service Parts Coordinator: GEOVANI : 1970 Requested By: ERICA GONZALEZ Order Number: [id number] Reading MD: Measurements Intervals [place] Rate: 103 P: 64 [place]: 140 QRS: 58 QRSD: 73 T: 53 QT: 308 QTc: 403 Interpretive Statements Sinus tachycardia Baseline wander in lead(s) I,II,aVR Please click the below link to view image of tracing.
--- NOTE | 2024-03-08 21:21 | ED.PDOC ---
History of Present Illness HPI Comments 53 y/o F, with a Hx of DM, HTN, thyroid disease, obesity, and cholecystectomy, presents with c/o chest, left arm, and left upper back pain and shortness of breath, today. Patient reports sudden onset of symptoms, this evening, after being discharged from a 2x day hospital admission at [facility] for chest pain (01/2024-03/08/2024). Patient comments on pain starting in her chest and radiating towards her left arm and back and describes pain as "tightness" in quality in addition to feeling similar to her last onset that led to her aforementioned hospital admission. Patient reports no recent stress, injuries, sick contact, travel, spoiled food intake, substance use/exposure, or sexual activity. Patient endorses no additional relevant or pertinent past medical, surgical, or family Hx. Patient denies having any shortness of breath, palpitations, nausea, vomiting, fever, chills, or other associated symptoms or modifiers at this time. Time Seen by MD: 21:00 Primary Care Provider: PT DOES NOT KNOW Reviewed Notes: Nurses Notes, Medications, Allergies Allergies: Coded Allergies: NO KNOWN ALLERGIES (Unverified , 11/17/22) Home Meds Active Scripts Cyclobenzaprine Hcl (Cyclobenzaprine Hcl) 10 Mg Tab, 10 MG PO TID for 10 Days, #30 TAB Prov:SHANNON DYKES MD 12/06/23 Diclofenac Potassium (Diclofenac Potassium) 50 Mg Tab, 50 MG PO TID for 10 Days, #30 TAB Prov:SHANNON DYKES MD 12/06/23 Reported Medications Lisinopril (Lisinopril) 10 Mg Tab, 1 TAB PO DAILY 03/08/24 Insulin Glargine (Lantus Solostar) 100 Unit/Ml Inj, 20 UNITS SC 03/08/24 Methimazole (Methimazole) 5 Mg Tab, 1 TAB PO DAILY 03/08/24 Glipizide (Glipizide) 10 Mg Tab, 1 TAB PO BID 03/08/24 Information Source: Patient Mode of Arrival: Ambulatory Severity: Moderate Timing: Hours Duration: Since onset Prehospital treatment: None Past Medical History PAST MEDICAL HISTORY: DM, HTN, Thyroid Past Medical History (Other): obesity Surgical History: Cholecystectomy OFFICE ADMIN History: Denies all OFFICE ADMIN Hx Family History Family History: Reviewed,noncontributory to illness, Unknown Social History Smoker: Non-Smoker Alcohol: Denies ETOH Use Drugs: Denies Drug Use Lives In: Home Constitutional: denies: chills, diaphoresis, fatigue, fever, malaise, sweats, weakness, others EENTM: denies: blurred vision, double vision, ear bleeding, ear discharge, ear drainage, ear pain, ear ringing, eye pain, eye redness, hearing loss, mouth pain, mouth swelling, nasal discharge, nose bleeding, nose congestion, nose pain, photophobia, tearing, throat pain, throat swelling, voice changes, others Respiratory: reports: shortness of breath; denies: cough, hemoptysis, orthopnea, SOB at rest, SOB with excertion, stridor, wheezing, others Cardiovascular: reports: chest pain, left arm pain; denies: dizzy spells, diaphoresis, Dyspnea on exertion, edema, irregular heart beat, lightheadedness, palpitations, PND, syncope, others Gastrointestinal: denies: abdomen distended, abdominal pain, blood streaked bowels, constipated, diarrhea, dysphagia, difficulty swallowing, hematemesis, melena, nausea, poor appetite, poor fluid intake, rectal bleeding, rectal pain, vomiting, others Genitourinary: denies: abnormal vagina bleeding, burning, dyspareunia, dysuria, flank pain, frequency, hematuria, incontinence, pain, , vagina discharge, urgency, others Neurological: denies: dizziness, fainting, headache, left sided numbness, left sided weakness, numbness, paresthesia, pre-existing deficit, right sided numbness, right sided weakness, seizure, speech problems, tingling, tremors, weakness, others Musculoskeletal: reports: back pain (left-upper back pain ); denies: gout, joint pain, joint swelling, muscle pain, muscle stiffness, neck pain, others Integumetry: denies: bruises, change in color, change in hair/nails, dryness, laceration, lesions, lumps, rash, wounds, others Allergic/Immunocompromised: denies: Difficulty Healing, Frequent Infections, Hives, Itching, others Hematologic/Lymphatic: denies: anemia, blood clots, easy bleeding, easy bruising, swollen glands, others Endocrine: denies: excessive hunger, excessive sweating, excessive thirst, excessive urination, flushing, intolerance to cold, intolerance to heat, unexplained weight gain, unexplained weight loss, others Psychiatric: denies: anxiety, bipolar disorder, depression, hopeless, panic disorder, schizophrenia, sleepless, suicidal, others All Other Systems: Reviewed and Negative Physical Exam General Appearance: No Apparent Distress HEENT: Normal ENT Inspection, Pharynx Normal, TMs Normal Neck: Full Range of Motion, Non-Tender, Normal, Normal Inspection Respiratory: Chest Non-Tender, Lungs Clear, No Accessory Muscle Use, No Respiratory Distress, Normal Breath Sounds Cardiovascular: No Edema, No JVD, No Murmur, No Gallop, Normal Peripheral Pulses, Regular Rate/Rhythm Breast Exam: Deferred Gastrointestinal: No Organomegaly, Non Tender, No Pulsatile Mass, Normal Bowel Sounds, Soft Genitalia: Deferred Pelvic: Deferred Rectal: Deferred Extremities: No calf tenderness, Normal capillary refill, Normal inspection, Normal range of motion, Non-tender, No pedal edema Musculoskeletal : Apperance: Normal Neurologic: Alert, feed project engineer II-XII nml as Tested, No Motor Deficits, Normal Affect, Normal Mood, No Sensory Deficits Cerebellar Function: Normal Reflexes: Normal Skin: Dry, Normal Color, Warm Lymphatic: No Adenopathy Was a procedure done? Was a procedure done?: No EKG EKG : Pulse Rate (adult): 103 [place]: Normal Cardiac Rhythm: ST Block: None Hypertrophy: None ST: Normal Differential Dx Considerations may include: SD, ACS, PE, pericarditis, angina, costochondritis, gastritis, gastroenteritis, musculoskeletal pain, viral syndrome X-Ray, Labs, Meds, VS Vital Signs Date Time Temp Pulse Resp B/P (MAP) Pulse Ox O2 Delivery O2 Flow Rate FiO2 03/08/24 21:21 103 03/08/24 21:05 103 03/08/24 21:01 97.8 103 22 120/82 (95) 100 Lab Test 03/08/24 21:04 Range/Units White Blood Count 7.3 # 4.4-10.8 10^3/uL Red Blood Count 4.34 4.0-5.20 10^6/uL Hemoglobin 12.9 12.2-16.2 g/dL Hematocrit 38.2 36.0-46.0 % Mean Corpuscular Volume 88.1 80.0-100.0 fL Mean Corpuscular Hemoglobin 29.6 28.0-32.0 pg Mean Corpuscular Hemoglobin Concent 33.6 32.0-36.0 g/dL Red Cell Distribution Width 13.3 11.8-14.3 % Platelet Count 283 140-450 10^3/uL Mean Platelet Volume 6.6 L 6.9-10.8 fL Neutrophils (%) (Auto) 50.8 37.0-80.0 % Lymphocytes (%) (Auto) 37.2 10.0-50.0 % Monocytes (%) (Auto) 9.7 0.0-12.0 % Eosinophils (%) (Auto) 1.8 0.0-7.0 % Basophils (%) (Auto) 0.5 0.0-2.0 % Neutrophils # (Auto) 3.7 1.6-8.6 10 ^3/uL Lymphocytes # (Auto) 2.7 0.4-5.4 10 ^3/uL Monocytes # (Auto) 0.7 0-1.3 10 ^3/uL Eosinophils # (Auto) 0.1 0-0.8 10 ^3/uL Basophils # (Auto) 0 0-0.2 10 ^3/uL Nucleated Red Blood Cells 0.1 % D-Dimer, Quantitative Pending Sodium Level 135 #L 136-145 mmol/L Potassium Level 3.7 3.5-5.1 mmol/L Chloride Level 101 98-107 mmol/L Carbon Dioxide Level 28 20-31 mmol/L Anion Gap 6 5-15 Blood Urea Nitrogen Pending Creatinine Pending Glomerular Filtration Rate Calc Pending BUN/Creatinine Ratio Pending Serum Glucose Pending Calcium Level 9.9 8.7-10.4 mg/dL Troponin I High Sensitivity < 3 L </=34 ng/L The chest x-ray is negative The CBC and chemistry panel are within normal limits The troponin level is negative We did review the patient's previous visits and at this time we feel that the patient can be safely discharged The patient will return to the emergency department's the condition worsens. Images Reviewed?: Images reviewed and evaluated by me Time of 1ST Reevaluation: 21:30 Reevaluation 1ST: Unchanged Patient Education/Counseling: Diagnosis, Treatment, Prognosis, Need For Follow Up Family Education/Counseling: No Family Present Departure 1 Departure Time of Disposition: 21:47 Impression: Primary Impression: Musculoskeletal chest pain Disposition: 01 HOME / SELF CARE / HOMELESS Condition: Fair Discharged With: Self Critical Care Note Critical Care Time?: No Stability Stability form required: No Heart Score Heart Score: Heart Score Response (Comments) Value History Moderate Suspicious 1 EKG Normal 0 Age 45-64 1 Risk Factors >3 or Hx ASHD 2 Troponin Normal limit 0 Total 4 I personally scribed for HETAL OSWALD MD ([email or web address]) on 03/08/24 at 21:21. Electronically submitted by Lucius De Leon ([email or web address]). HETAL OSWALD MD Mar 08, 2024 21:21
[2024-03-08 21:26] LABS: Basophils # (auto) 0 10 ^3/uL (0-0.2); Basophils % (auto) 0.5 % (0.0-2.0); Eosinophils # (auto) 0.1 10 ^3/uL (0-0.8); Eosinophils % (auto) 1.8 % (0.0-7.0); Hematocrit 38.2 % (36.0-46.0); Hemoglobin 12.9 g/dL (12.2-16.2); Lymphocytes # (auto) 2.7 10 ^3/uL (0.4-5.4); Lymphocytes % (auto) 37.2 % (10.0-50.0); Mean Corpuscular Hemoglobin 29.6 pg (28.0-32.0); Mean Corpuscular Hgb Conc. 33.6 g/dL (32.0-36.0); Mean Corpuscular Volume 88.1 fL (80.0-100.0); Monocytes # (auto) 0.7 10 ^3/uL (0-1.3); Monocytes % (auto) 9.7 % (0.0-12.0); Neutrophils # (auto) 3.7 10 ^3/uL (1.6-8.6); Neutrophils % (auto) 50.8 % (37.0-80.0); Nucleated Red Blood Cells % 0.1 %; Platelet Count (auto) 283 10^3/uL (140-450); Red Blood Cells 4.34 10^6/uL (4.0-5.20); Red Cell Distribution Width 13.3 % (11.8-14.3); White Blood Cell 7.3 10^3/uL (4.4-10.8)
[2024-03-08 21:31] LABS: Chloride 101 mmol/L (98-107); Potassium 3.7 mmol/L (3.5-5.1)
[2024-03-08 21:32] LABS: Anion Gap 6 (5-15); Carbon Dioxide 28 mmol/L (20-31)
[2024-03-08 21:33] LABS: Calcium 9.9 mg/dL (8.7-10.4)
[2024-03-08 21:36] LABS: Sodium 135 mmol/L (136-145)
[2024-03-08 21:46] LABS: BUN/Creatinine Ratio 15.4 (10.0-20.0); Blood Urea Nitrogen 14 mg/dL (9-23); Glucose 302 mg/dL (74-106)
--- NOTE | 2024-03-08 21:53 | DVH ---
EXAM: XY CHEST TWO VIEWS ROUTINE CLINICAL HISTORY: CP TECHNIQUE: Frontal and lateral views of the chest WID: COMPARISON: None FINDINGS: Lines and tubes: None Chest: The heart size and pulmonary vasculature is within normal limits. No pleural effusion, pneumothorax, or consolidation. The osseous structures are grossly intact. Cholecystectomy clips are seen. IMPRESSION: No acute cardiopulmonary abnormality.
[2024-03-08] MEDS ORDERED: KETOROLAC TROMETH 30 MG/ML 1ML VIAL IV ONE (22:00)
[2024-03-08 23:06] VITALS: BP 132/73; TEMP 97.8
[2024-03-08 23:08] VITALS: PULSE 107; RESP 20; O2SAT 100
[2024-03-08] MEDS ORDERED: KETOROLAC TROMETH 30 MG/ML 1ML VIAL IM ONE (23:15)
[2024-03-08] MEDS: ASPirin 81 mg TAB PO ONE (23:48)
[2024-03-08] MEDS: KETOROLAC TROMETH 30 MG/ML 1ML VIAL IV ONE (23:48)
[2024-03-08 23:53] LABS: Urine Bacteria None Seen /hpf (None Seen)
[2024-03-09 00:12] LABS: Urine Blood Negative /uL (Negative); Urine Clarity Clear (Clear); Urine Color Light-Yellow (Yellow); Urine Protein, UAD Negative (Negative); Urine Specific Gravity 1.022 (1.001-1.035); Urine Urobilinogen Normal (Negative); Urine WBC <1 /hpf (0 - 5)
--- NOTE | 2024-03-09 01:36 | DVH ---
CLINICAL HISTORY: chest pain elevated ddimer TECHNIQUE: CT angiogram of the chest was performed with intravenous contrast. ml of was administere d intravenously. 3D MIP reconstructed images were created and archived on the PACS system. This exam was performed according to our departmental dose optimization program. Up-to-date CT equipment and ra diation dose reduction techniques are utilized as appropriate. CTDI: [CTDIvol] DLP: 566.28 WID: COMPARISON: None FINDINGS: Lower Neck: Symmetric enlargement of the thyroid gland as well as substernal extension of the isthmus and left thyroid Axilla, Mediastinum and Arlet: Unremarkable. Heart and Great Vessels: Heart size is normal. There is trace pericardial effusion. Common origin of the left common carotid and right brachiocephalic arteries, normal variant. Thoracic aorta is patent and normal caliber. There is no central, segmental, or subsegmental pulmonary artery filling defect t o suggest pulmonary embolism. Airway, Lungs and Pleura: Unremarkable. Chest Wall and Osseous Structures: Mild multilevel thoracic spondylosis. No destructive osseous lesio n. Upper abdomen: Prior cholecystectomy. Pancreatic atrophy. no acute abnormality IMPRESSION: 1. No evidence of pulmonary embolism or acute abnormality in the chest. 2. Enlarged thyroid goiter with substernal extension of the isthmus and left thyroid
== END 2024-03-09 06:30 | disposition home or self-care (01) ==
LOC: ER 20:56
DX: M54.6 Pain in thoracic spine (principal); R07.89 Other chest pain; E11.9 Type 2 diabetes mellitus without complications; E03.9 Hypothyroidism, unspecified; Z79.899 Other long term (current) drug therapy; Z90.49 Acquired absence of other specified parts of digestive tract
CPT/HCPCS: 36415; 71046; 71275; 80048; 81001; 84484; 85025; 85379; 93005; 96374; 99285; J1885